=== PATIENT | male | born 1995 | race Caucasian/White ===

== ENCOUNTER → 2018-11-12 | Outpatient (REF) | payer OTHER, SELFPAY ==
[2018-11-12 23:23] LABS: GC DNA AMPLIFICATION NEGATIVE (NEGATIVE)
[2018-11-13 06:53] LABS: CHLAMYDIA DNA AMPLIFICATION NEGATIVE (NEGATIVE)
== END ==
LOC: M LAB REF 19:45
PROVIDERS: ATTEND Physician Assistant
DX: Z20.2 Contact with and (suspected) exposure to infections with a predominantly sexual mode of transmission (principal)